=== PATIENT | male | born 1955 | race American Indian/Alaskan Native ===

== ENCOUNTER 2018-09-09 02:42 | Emergency (ER) | payer MEDICARE ==
[2018-09-09 03:06] VITALS: BP 167/75
== END 2018-09-09 03:21 | disposition left against medical advice (07) ==
LOC: ED 02:42
DX: S69.92XA Unspecified injury of left wrist, hand and finger(s), initial encounter (principal); X58.XXXA Exposure to other specified factors, initial encounter; Y93.89 Activity, other specified; Y92.89 Other specified places as the place of occurrence of the external cause; Y99.8 Other external cause status; Z53.21 Procedure and treatment not carried out due to patient leaving prior to being seen by health care provider

== ENCOUNTER 2018-11-27 09:18 | Observation (INO) | payer MEDICARE ==
[2018-11-27] MEDS ORDERED: ASPIRIN PO ONE (09:41)
--- NOTE | 2018-11-27 10:24 | XRay Report ---
CHEST 1 VIEW INDICATION: Chest Pain. COMPARISON: FINDINGS: Support devices: None. Heart: Borderline to mild cardiomegaly is suspected. Normal pulmonary vascularity. Lungs/Pleura: No acute air space or interstitial disease. Additional findings: None. IMPRESSION: Borderline to mild cardiomegaly . Lungs clear. Signer Name: Angelo Bose Jr, MD Signed: 11/27/2018 10:20 AM Workstation Name: [id number]
[2018-11-27 10:35] LABS: Basophils # (Auto) 0.1 K/mm3 (0.0-0.1); Basophils % (Auto) 1.7 % (0.0-1.8); Eosinophils # (Auto) 0.1 K/mm3 (0.0-0.4); Eosinophils % (Auto) 3.3 % (0.0-4.3); Hematocrit 38.5 % (35.5-45.6); Hemoglobin 12.8 gm/dl (11.8-15.2); Lymphocytes # (Auto) 1.6 K/mm3 (1.2-5.4); Mean Corpuscular HGB Conc 33 % (32-34); Mean Corpuscular Volume 77 fl (84-94); Monocytes # (Auto) 0.4 K/mm3 (0.0-0.8); Monocytes % (Auto) 8.6 % (0.0-7.3); Platelet Count 177 K/mm3 (140-440); Red Blood Count 5.01 M/mm3 (3.65-5.03); Red Cell Distribution Width 15.9 % (13.2-15.2)
--- NOTE | 2018-11-27 10:40 | Emergency Department Report ---
ED Chest Pain HPI - General Chief Complaint: Chest Pain Stated Complaint: CHEST/HEAD PAIN Time Seen by Provider: 11/27/18 09:55 Source: patient Mode of arrival: Ambulatory Limitations: No Limitations - History of Present Illness Initial Comments: 63 yo AA M, with pmhx of HTN and DM, presents with mid-sternal CP since last night. It is associated with b/l arm and leg pain that is an aching sensation, as well as a headache. He did not take his home meds today and did not take anything specifically to treat his symptoms. No recent travel or sick contacts at home. No SOB, fever, back pain or diaphoresis. His PCP is Brayan Glez. His Cardilogist is Werner Mendosa but has not seem him in over a year. He has not had a stress test in more than two years. Severity scale (0 -10): 8 - Related Data Home Medications Medication Instructions Recorded Confirmed Last Taken B2/Vits A,C,E/Lut/Zeaxanth/Min 1 tab PO QDAY 11/27/18 11/27/18 Unknown [Icaps Tablet] Lisinopril [Zestril TAB] 40 mg PO QDAY 11/27/18 11/27/18 Unknown Metoprolol [Lopressor TAB] 50 mg PO BID 11/27/18 11/27/18 Unknown NIFEdipine [Nifedipine ER] 30 mg PO QDAY 11/27/18 11/27/18 11/26/18 [place]-3S/Dha/Epa/Fish Oil [[place]-3 1 each PO QDAY 11/27/18 11/27/18 Unknown Fish Oil 1,000 mg Sfgl] cloNIDine [Catapres] 0.1 mg PO QHS 11/27/18 11/27/18 Unknown Allergies Allergy/AdvReac Type Severity Reaction Status Date / Time statins Allergy Unknown Uncoded 11/27/18 09:24 Heart Score - HEART Score History: Moderately suspicious EKG: Non-specific Age: 45-65 Risk factors: 1-2 risk factors Troponin: < normal limit HEART Score: 4 - Critical Actions Critical Actions: 0-3 pts:0.9-1.7%risk of adverse cardiac event.Candidate for discharge ED Review of Systems ROS: Stated complaint: CHEST/HEAD PAIN Other details as noted in HPI Comment: All other systems reviewed and negative Constitutional: denies: chills, fever Eyes: denies: eye pain, vision change ENT: denies: ear pain, throat pain Respiratory: denies: cough, shortness of breath Cardiovascular: chest pain. denies: palpitations Gastrointestinal: denies: abdominal pain, vomiting Genitourinary: denies: dysuria, discharge Musculoskeletal: arthralgia, myalgia. denies: joint swelling Skin: denies: rash, lesions Neurological: headache. denies: numbness, paresthesias ED Past Medical Hx - Past Medical History Hx Hypertension: Yes Hx Diabetes: Yes - Surgical History Past Surgical History?: No - Social History Smoking Status: Never Smoker Substance Use Type: None - Medications Home Medications: Home Medications Medication Instructions Recorded Confirmed Last Taken Type B2/Vits A,C,E/Lut/Zeaxanth/Min 1 tab PO QDAY 11/27/18 11/27/18 Unknown History [Icaps Tablet] Lisinopril [Zestril TAB] 40 mg PO QDAY 11/27/18 11/27/18 Unknown History Metoprolol [Lopressor TAB] 50 mg PO BID 11/27/18 11/27/18 Unknown History NIFEdipine [Nifedipine ER] 30 mg PO QDAY 11/27/18 11/27/18 11/26/18 History [place]-3S/Dha/Epa/Fish Oil [[place]-3 1 each PO QDAY 11/27/18 11/27/18 Unknown History Fish Oil 1,000 mg Sfgl] cloNIDine [Catapres] 0.1 mg PO QHS 11/27/18 11/27/18 Unknown History ED Physical Exam - General Limitations: No Limitations - Other Other exam information: GENERAL: The patient is well-developed well-nourished. HENT: Normocephalic. Atraumatic. Patient has moist mucous membranes. EYES: Extraocular motions are intact. NECK: Supple. Trachea is midline. CHEST/LUNGS: Clear to auscultation. There is no respiratory distress noted. HEART/CARDIOVASCULAR: Regular. There is no tachycardia. There is no murmur. ABDOMEN: Abdomen is soft, nontender. Patient has normal bowel sounds. There is no abdominal distention. SKIN: Skin is warm and dry. NEURO: The patient is awake, alert, and oriented. The patient is cooperative. The patient has no focal neurologic deficits. The patient has normal speech. MUSCULOSKELETAL: There is no tenderness or deformity. There is no limitation range of motion. There is no evidence of acute injury. ED Course Vital Signs 11/27/18 11/27/18 11/27/18 09:55 10:00 10:46 Temperature 98.3 F Pulse Rate 84 64 78 Respiratory 12 17 11 L Rate Blood Pressure 202/97 186/96 156/86 O2 Sat by Pulse 96 94 98 Oximetry 11/27/18 11/27/18 11/27/18 11:00 11:06 12:00 Temperature Pulse Rate 58 L 53 L Respiratory 14 18 20 Rate Blood Pressure 156/86 180/74 O2 Sat by Pulse 99 97 Oximetry 11/27/18 11/27/18 11/27/18 12:30 12:56 13:26 Temperature Pulse Rate 73 68 87 Respiratory 21 27 H Rate Blood Pressure 172/71 218/107 218/107 O2 Sat by Pulse 97 99 Oximetry 11/27/18 11/27/18 11/27/18 13:30 14:00 14:29 Temperature Pulse Rate 85 74 77 Respiratory 26 H 17 Rate Blood Pressure 206/87 196/88 202/83 O2 Sat by Pulse 99 99 Oximetry 11/27/18 11/27/18 11/27/18 14:30 15:15 15:30 Temperature Pulse Rate 70 76 Respiratory 17 26 H Rate Blood Pressure 188/86 198/63 161/58 O2 Sat by Pulse 100 100 98 Oximetry 11/27/18 11/27/18 11/27/18 16:30 17:00 17:30 Temperature Pulse Rate 67 59 L 58 L Respiratory 21 25 H 19 Rate Blood Pressure 163/78 176/62 154/56 O2 Sat by Pulse 97 97 97 Oximetry 11/27/18 17:43 Temperature 98.1 F Pulse Rate Respiratory Rate Blood Pressure O2 Sat by Pulse Oximetry HAYDEN score - Hayden Score Age > 65: (0) No Aspirin use within the Past 7 Days: (0) No 3 or more CAD Risk Factors: (0) No 2 or more Angina events in past 24 hrs: (1) Yes Known CAD with more than 50% Stenosis: (0) No Elevated Cardiac Markers: (0) No ST Deviation Greater than 0.5mm: (1) Yes HAYDEN Score: 2 ED Medical Decision Making - Lab Data Result diagrams: 11/27/18 10:15 11/27/18 10:15 - EKG Data -: EKG Interpreted by Me EKG shows normal: sinus rhythm (PACs), axis (left axis deviation), intervals (prolonged MS interval), QRS complexes (LVH), ST-T waves Rate: normal - EKG Data When compared to previous EKG there are: previous EKG unavailable Interpretation: other (Sinus with PACs, LVH, prolonged MS interval) - Radiology Data Radiology results: report reviewed, image reviewed interpreted by me: Chest x-ray does not show any acute process. There are no pleural effusions, obvious pneumonia and there is no pneumothorax. CTA CHEST WITH CONTRAST INDICATION : Chest pain for 2 months, hypertension, diabetes. TECHNIQUE: Axial imaging performed through the chest, with contrast bolus timing set to maximize opacification of the pulmonary arteries. Sagittal and coronal reformatted images. 3-plane MIP reformatted images were obtained. All CT scans at this location are performed using CT dose reduction for ALARA by means of automated exposure control. Omnipaque 350 100 mL of intravenous contrast administered. COMPARISON: None FINDINGS: Bolus: Contrast bolus timing is adequate. PTE: No filling defect is present to suggest PTE. Mediastinum: Mild cardiomegaly is evident. No pericardial effusion. The aorta is within normal limits. No pathologic mediastinal adenopathy. Lungs: Lungs are clear. Upper abdomen: Limited imaging of the upper abdomen shows nothing acute. Few simple left renal cysts are partially imaged. Bones: No significant abnormality. IMPRESSION: Negative for PTE. Mild cardiomegaly. Clear lungs. CT of the head does not show any acute intracranial process including no ischemi a, shift, mass, bleeding or skull fracture. - Medical Decision Making This patient presents with a headache and some midsternal chest pain. He also presents with severely elevated blood pressure. EKG did not show any signs of ST elevation WI. Chest x-ray did not show any focal consolidation, pneumothorax, pneumonia, pleural effusions, or any other acute process. Patient's labs were mostly unremarkable except for a slightly elevated and equivocal d-dimer. For this reason a CT angiography of the chest was done but it did not result in any pulmonary embolism, dissection or aneurysm. CT of the head without contrast was also done that does not show any bleed, shift, mass, ischemia, or any other acute process. Patient was given some pain medication a nd 2 different doses of antihypertensive medication. It helped with his discomfort but he still has elevated blood pressure. It has been a while since the patient last had a stress test. For all these reasons, the patient will be admitted to hospital for further evaluation and treatment and was accepted for admission by the hospitalist, Dr Christensen. - Differential Diagnosis WI, PE, Costochondritis, tension GARCIA, subarachnoid Critical Care Time: No Critical care attestation.: If time is entered above; I have spent that time in minutes in the direct care of this critically ill patient, excluding procedure time. ED Disposition Clinical Impression: Acute chest pain, Hypertensive urgency Disposition: 09 OP ADMIT IP TO THIS HOSP Is pt being admited?: Yes Condition: Fair Time of Disposition: 14:18
[2018-11-27 10:46] LABS: INR 1.11 (0.87-1.13)
[2018-11-27 10:47] LABS: Partial Thromboplastin Time 28.6 Sec. (24.2-36.6)
[2018-11-27] MEDS ORDERED: APRESOLINE IV ONE ×2 (10:53→13:55)
[2018-11-27] MEDS ORDERED: MORPHINE IV ONE (10:53)
[2018-11-27 10:59] LABS: BUN/Creatinine Ratio 14; Blood Urea Nitrogen 15 mg/dL (9-20); Calcium 9.2 mg/dL (8.4-10.2); Hemolysis Index 15
--- NOTE | 2018-11-27 13:49 | Cat Scan Report ---
CTA CHEST WITH CONTRAST INDICATION : Chest pain for 2 months, hypertension, diabetes. TECHNIQUE: Axial imaging performed through the chest, with contrast bolus timing set to maximize opa cification of the pulmonary arteries. Sagittal and coronal reformatted images. 3-plane MIP reformatte d images were obtained. All CT scans at this location are performed using CT dose reduction for ALAR A by means of automated exposure control. Omnipaque 350 100 mL of intravenous contrast administered. COMPARISON: None FINDINGS: Bolus: Contrast bolus timing is adequate. PTE: No filling defect is present to suggest PTE. Mediastinum: Mild cardiomegaly is evident. No pericardial effusion. The aorta is within normal limit s. No pathologic mediastinal adenopathy. Lungs: Lungs are clear. Upper abdomen: Limited imaging of the upper abdomen shows nothing acute. Few simple left renal cyst s are partially imaged. Bones: No significant abnormality. IMPRESSION: Negative for PTE. Mild cardiomegaly. Clear lungs. Signer Name: Angelo Bose Jr, MD Signed: 11/27/2018 1:45 PM Workstation Name: [id number]
--- NOTE | 2018-11-27 14:00 | Cat Scan Report ---
CT HEAD WITHOUT CONTRAST INDICATION / CLINICAL INFORMATION: Headache. TECHNIQUE: Axial imaging performed from the skull apex through the skull base without the use of cont rast. All CT scans at this location are performed using CT dose reduction for ALARA by means of auto mated exposure control. COMPARISON: None available. FINDINGS: HEMORRHAGE: None. EXTRA-AXIAL SPACES: Normal in size and morphology for the patient's age. VENTRICULAR SYSTEM: Normal in size and morphology for the patient's age. CEREBRAL PARENCHYMA: No significant abnormality. No acute territorial infarct. MIDLINE SHIFT OR HERNIATION: None. CEREBELLUM / BRAINSTEM: No significant abnormality. ORBITS: Normal as visualized. SOFT TISSUES of HEAD: No significant abnormality. CALVARIUM: No significant abnormality. PARANASAL SINUSES / MASTOID AIR CELLS: Normal as visualized. ADDITIONAL FINDINGS: None. IMPRESSION: 1. No acute intracranial abnormality. Signer Name: Angelo Bose Jr, MD Signed: 11/27/2018 1:55 PM Workstation Name: [id number]
[2018-11-27] MEDS ORDERED: DILAUDID IV PRN (21:19)
[2018-11-27] MEDS ORDERED: SODIUM CHLORIDE FLUSH SYRINGE 10 ML IV PRN (21:19)
[2018-11-27] MEDS ORDERED: ZOFRAN IV PRN (21:19)
[2018-11-27] MEDS ORDERED: IBUPROFEN PO PRN (21:19)
[2018-11-27] MEDS ORDERED: TYLENOL PO PRN (21:19)
--- NOTE | 2018-11-27 21:19 | Event Note ---
Date: 11/27/18 See dictated history and physical in the reports Chest pain rule out MT Hypertensive emergency
[2018-11-27] MEDS ORDERED: APRESOLINE IV PRN ×2 (21:23→21:34)
--- NOTE | 2018-11-27 21:59 | History and Physical Report ---
CHIEF COMPLAINT: Chest pain since last night. Headache since yesterday. HISTORY OF PRESENT ILLNESS: A 63-year-old -[place] male with history of hypertension, comes in for left-sided chest pain since yesterday and also headache since yesterday. Headache is bitemporal and dull in character. Pain is about 8 on a scale of 1-10. No nausea or vomiting. No shortness of breath. No fever. No diaphoresis, no palpitations. The patient has not had a stress test in more than 2 years. No shortness of breath on exertion. No precipitating or exacerbating factors. No relieving factors. Chest pain is 7-8 on a scale of 1-10. PAST MEDICAL HISTORY: Significant for hypertension and hyperlipidemia. PAST SURGICAL HISTORY: None. SOCIAL HISTORY: Does not smoke. No alcohol, no recreational drugs. FAMILY HISTORY: Significant for hypertension. CURRENT MEDICATIONS: Lisinopril 40 mg once a day, metoprolol 50 mg twice a day, nifedipine 30 mg once a day, and clonidine 0.1 at bedtime. REVIEW OF SYSTEMS: Significant for left-sided chest pain and headache. No palpitations, no shortness of breath. A 14-point review of systems is done. Otherwise, negative. PHYSICAL EXAMINATION: GENERAL: Middle-aged male, cooperative during examination. VITAL SIGNS: Blood pressure was 202/97 the initial one. The second one was 186/96, temperature is 98.3, pulse is 84, respirations are 12, sats are 96%. HEENT: Unremarkable. Pupils equal and reactive. NECK: Supple, no lymphadenopathy, no thyromegaly. LUNGS: Clear to auscultation and percussion. Good air entry. CARDIOVASCULAR: S1, S2 heard. No gallop, no murmur, no rub. Apical impulse in left fifth intercostal space and midclavicular line. ABDOMEN: Soft and benign. No hepatosplenomegaly. No guarding, no rigidity. Hernial orifices are normal. EXTREMITIES: Good pedal pulses. No pedal edema. CENTRAL NERVOUS SYSTEM: Alert and oriented x 4, nonfocal exam. SKIN: Normal. EKG shows sinus rhythm, atrial premature complexes, left ventricular hypertrophy. Deep R waves in V1, V2, V3 and V4. Tall R waves in V5 and V6. Heart rate of 69 per minute. Chest x-ray shows borderline to mild cardiomegaly. Lungs are clear. CT of the chest negative for pulmonary embolism. Mild cardiomegaly. Head CT with no acute findings. ASSESSMENT AND PLAN: 1. Chest pain, rule out myocardial infarction, chest pain protocol. Serial troponins. Stress test, treadmill in the morning. The patient can walk, has exercise treadmill stress test. 2. Hypertensive emergency. The patient initiated on losartan. To continue lisinopril, metoprolol, nifedipine. Clonidine to be put on hold. Clonidine may be causing rebound hypertension because it is being given only one time. Added losartan and MARBIN inhibitor. No more clonidine in the future. The patient to be counseled about that. 3. Hyperglycemia. The patient to be ruled out for diabetes. Hemoglobin A1c to be checked. The patient to be initiated on Accu-Cheks a.c. and at bedtime and moderate dose sliding scale protocol. 4. Deep venous thrombosis prophylaxis. Continue Lovenox 40 mg subcutaneous daily and GI prophylaxis. JOB# [id number] VSM/NTS
[2018-11-27] MEDS ORDERED: LOVENOX SUB-Q SCH (22:00)
[2018-11-27] MEDS ORDERED: NORVASC PO SCH (22:00)
[2018-11-27 22:17] LABS: Creatine Kinase MB 3.4 ng/mL (0.0-4.0)
[2018-11-27] MEDS: LOPRESSOR PO SCH (22:29)
[2018-11-27] MEDS: PEPCID PO SCH (22:29)
[2018-11-27] MEDS: ZESTRIL PO SCH (22:29)
[2018-11-27] MEDS: PROCARDIA XL PO SCH (22:29)
[2018-11-27] MEDS: HumaLOG SUB-Q SCH (22:31)
[2018-11-27] MEDS: COZAAR PO SCH (22:31)
[2018-11-27] MEDS: SODIUM CHLORIDE FLUSH SYRINGE 10 ML IV SCH (22:32)
[2018-11-28 06:51] LABS: Basophils # (Auto) 0.1 K/mm3 (0.0-0.1); Basophils % (Auto) 1.4 % (0.0-1.8); Eosinophils # (Auto) 0.2 K/mm3 (0.0-0.4); Eosinophils % (Auto) 4.1 % (0.0-4.3); Lymphocytes # (Auto) 1.7 K/mm3 (1.2-5.4); Mean Corpuscular HGB Conc 33 % (32-34); Mean Corpuscular Volume 77 fl (84-94); Monocytes # (Auto) 0.4 K/mm3 (0.0-0.8); Monocytes % (Auto) 9.4 % (0.0-7.3); Platelet Count 170 K/mm3 (140-440); Red Blood Count 5.08 M/mm3 (3.65-5.03)
[2018-11-28 07:00] LABS: Creatine Kinase MB 2.9 ng/mL (0.0-4.0)
[2018-11-28 07:12] LABS: Alanine Aminotransferase 11 units/L (7-56); Albumin 3.8 g/dL (3.9-5); BUN/Creatinine Ratio 14; Blood Urea Nitrogen 14 mg/dL (9-20); Calcium 9.1 mg/dL (8.4-10.2); Hemolysis Index 32
[2018-11-28] MEDS ORDERED: FISH OIL PO SCH (10:00)
[2018-11-28] MEDS: COZAAR PO SCH (11:31)
[2018-11-28] MEDS: PROCARDIA XL PO SCH (11:32)
[2018-11-28] MEDS: ZESTRIL PO SCH (11:32)
[2018-11-28] MEDS: PEPCID PO SCH (11:32)
[2018-11-28] MEDS: LOPRESSOR PO SCH (11:32)
[2018-11-28] MEDS: HumaLOG SUB-Q SCH (11:33)
[2018-11-28 11:34] VITALS: BP 146/66
[2018-11-28] MEDS: SODIUM CHLORIDE FLUSH SYRINGE 10 ML IV SCH (11:46)
--- NOTE | 2018-11-28 14:58 | Discharge Summary ---
Providers - Providers Date of Admission: 11/27/18 14:18 Date of discharge: 11/28/18 Attending physician: GM WELLS Primary care physician: YOLANDE ABDULLAHI Hospitalization Condition: Fair Hospital course: Patient is 63 yo with hypertension, diabetes, presented with mid-sternal chest pain. He was seen and evaluated in the emergency department. Initial troponin was normal. Initial BP was 202/97. He was given Hydralazine iv aspirin and admitted to manage BP and to rule out acute coronary syndrome. Stress test done the following day was normal. By then BP was normal on multiple medications. He was subsequently discharged home. Chest pain is non-cardiac due to GERD. Disposition: DC- TO HOME OR SELFCARE - Discharge Diagnoses (1) Acute chest pain Status: Acute (2) Hypertensive urgency Status: Acute (3) GERD (gastroesophageal reflux disease) Status: Acute Core Measure Documentation - Palliative Care Palliative Care/ Comfort Measures: Not Applicable - Core Measures Any of the following diagnoses?: none Exam - Constitutional Vitals: Temp Pulse Resp BP Pulse Ox 98.0 F 75 18 146/66 98 11/28/18 08:55 11/28/18 11:32 11/28/18 10:00 11/28/18 11:32 11/28/18 08:55 Plan Activity: no restrictions Diet: low fat, low cholesterol, low salt Additional Instructions: 1.Follow up with PCP in 1 week. Follow up with: PRIMARY CAREMD [Referring] - 3-5 Days Prescriptions: cloNIDine [Catapres] 0.1 mg PO BID #60 tablet Famotidine [Pepcid] 20 mg PO BID #30 tablet
--- NOTE | 2018-11-29 00:25 | Treadmill Report ---
TREADMILL STRESS TEST REPORT REASON FOR STUDY: Chest pain. STRESS TEST PROTOCOL: The patient completed 6 minutes and 18 seconds of the Mychal protocol. He attained a peak heart rate of 147 per minute, which is 93% of his age predicted maximum (7.4 mets). No ischemic ECG changes. No chest pain. There were frequent PACs during exercise and in the recovery phase. The test was terminated due to fatigue. IMPRESSION: Negative stress test. No evidence of stress-induced ischemia. JOB# [id number] EVELIN/NTS
== END 2018-11-28 16:00 | disposition home or self-care (01) ==
LOC: ED 09:18 → 4A 14:18
PROVIDERS: ADMIT Internal Medicine; ATTEND Internal Medicine
DX: R07.89 Other chest pain (principal); I16.0 Hypertensive urgency; I16.1 Hypertensive emergency; I10 Essential (primary) hypertension; E11.65 Type 2 diabetes mellitus with hyperglycemia; Z79.899 Other long term (current) drug therapy
CPT/HCPCS: 36415; 70450; 71045; 71275; 80048; 80053; 82550; 82553; 82962; 83036; 84484; 85025; 85379; 85610; 85730; 93005; 93010; 93017; 96374; 96376; 99284; G0378; G0480; J0360; Q9967; 80320; J1650

== ENCOUNTER 2019-10-07 05:24 | Emergency (ER) | payer MEDICARE ==
[2019-10-07 05:35] VITALS: BP 189/93
--- NOTE | 2019-10-07 08:30 | Cat Scan Report ---
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 TECHNIQUE: All CT scans at this location are performed using CT dose reduction for ALARA by means of automated e xposure control. COMPARISON: Head CT dated 02/02/2019 FINDINGS: One scan a left sided prosthesis is seen in the orbit. The appearance of the prosthesis has not teresa ed from the prior examination dated 02/02/2019. No significant soft tissue edema or fluid is seen insi de or outside of the orbit. Contents of the left orbit is unchanged from the prior study. No fracture seen. The paranasal sinuses are clear. 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 No defini te acute abnormality is seen. Signer Name: Ollie Taylor MD FACR Signed: 10/07/2019 8:26 AM Workstation Name: [id number]
--- NOTE | 2019-10-07 08:37 | Emergency Department Report ---
ED Eye Problem HPI - General Chief complaint: Eye Problems Stated complaint: BILATERAL EYE PAIN Time Seen by Provider: 10/07/19 08:19 Source: patient Mode of arrival: Ambulatory Limitations: No Limitations - History of Present Illness Initial comments: 64-year-old -[place] male presents to the emergency room for bilateral eye pain and drainage. Patient states that this is been intermittent for the last 2 weeks. 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 Patient states that it feels like the eyeball is sore to touch. Patient reports the pain is intense by moving his eye and movement. Patient states that he was seen by Dr. Middleton office and was placed on antibiotic eyedrops but does not know the name of them. Patient reports that his pain is a 10 out of 10 with movement and when he stays still and relaxes the pain subsides. Patient denies any recent trauma to his eye. Patient admits that his vision is blurred. And he does have some light sensitivity. MD chief complaint: eye pain, eye redness - Related Data Home Medications Medication Instructions Recorded Confirmed Last Taken B2/Vits A,C,E/Lut/Zeaxanth/Min 1 tab PO QDAY 11/27/18 11/27/18 Unknown [Icaps Tablet] Metoprolol [Lopressor TAB] 50 mg PO BID 11/27/18 11/27/18 Unknown NIFEdipine [Nifedipine ER] 30 mg PO QDAY 11/27/18 11/27/18 11/26/18 [place]-3S/Dha/Epa/Fish Oil [[place]-3 1 each PO QDAY 11/27/18 11/27/18 Unknown Fish Oil 1,000 mg Sfgl] lisinopriL [Zestril TAB] 40 mg PO QDAY 11/27/18 11/27/18 Unknown Previous Rx's Medication Instructions Recorded Last Taken Type Famotidine [Pepcid] 20 mg PO BID #30 tablet 11/28/18 Unknown Rx cloNIDine [Catapres] 0.1 mg PO BID #60 tablet 11/28/18 Unknown Rx Acetaminophen [Non-Aspirin Extra 500 mg PO Q6HR PRN #30 tablet 02/02/19 Unknown Rx Strength] Ibuprofen [Motrin] 600 mg PO Q8H PRN #30 tablet 02/02/19 Unknown Rx oxyCODONE /ACETAMINOPHEN [Percocet 1 tab PO Q6HR PRN #9 tablet 02/02/19 Unknown Rx 5/325] Allergies Allergy/AdvReac Type Severity Reaction Status Date / Time statins Allergy Unknown Uncoded 11/27/18 09:24 ED Review of Systems ROS: Stated complaint: BILATERAL EYE PAIN Other details as noted in HPI ED Past Medical Hx - Past Medical History Previous Medical History?: Yes Hx Hypertension: Yes Hx Congestive Heart Failure: No Hx Diabetes: Yes Hx Asthma: No Hx COPD: No - Surgical History Past Surgical History?: No - Social History Smoking Status: Never Smoker Substance Use Type: None - Medications Home Medications: Home Medications Medication Instructions Recorded Confirmed Last Taken Type B2/Vits A,C,E/Lut/Zeaxanth/Min 1 tab PO QDAY 11/27/18 11/27/18 Unknown History [Icaps Tablet] Metoprolol [Lopressor TAB] 50 mg PO BID 11/27/18 11/27/18 Unknown History NIFEdipine [Nifedipine ER] 30 mg PO QDAY 11/27/18 11/27/18 11/26/18 History [place]-3S/Dha/Epa/Fish Oil [[place]-3 1 each PO QDAY 11/27/18 11/27/18 Unknown History Fish Oil 1,000 mg Sfgl] lisinopriL [Zestril TAB] 40 mg PO QDAY 11/27/18 11/27/18 Unknown History Famotidine [Pepcid] 20 mg PO BID #30 tablet 11/28/18 Unknown Rx cloNIDine [Catapres] 0.1 mg PO BID #60 tablet 11/28/18 Unknown Rx Acetaminophen [Non-Aspirin Extra 500 mg PO Q6HR PRN #30 tablet 02/02/19 Unknown Rx Strength] Ibuprofen [Motrin] 600 mg PO Q8H PRN #30 tablet 02/02/19 Unknown Rx oxyCODONE /ACETAMINOPHEN [Percocet 1 tab PO Q6HR PRN #9 tablet 02/02/19 Unknown Rx 5/325] ED Physical Exam - General Limitations: No Limitations ED Course Vital Signs 10/07/19 05:29 Temperature 98.5 F Pulse Rate 63 Respiratory 18 Rate Blood Pressure 189/93 O2 Sat by Pulse 99 Oximetry ED Medical Decision Making - Radiology Data Radiology results: report reviewed Referring Physician:NICK NEWMANPatient Name:THERESE JAMES BEEPatient ID:[id number] of :[id number]:MaleAccession:[id number] Date:5723-33-17Pmruum Status:Finalized Findings [facility] [address] [id number] Cat Scan Report Signed Patient: THERESE REGAN JR MR#: [id number] : 1955 Acct:[id number] Age/Sex: 64 / M ADM Date: 10/07/19 Loc: ED Attending Dr: Ordering Physician: JOSE DUMONT Date of Service: 10/07/19 Procedure(s): CT orbit/ear/fossa wo con Accession Number(s): [id number] cc: JOSE DUMONT CT orbit/ear/fossa wo con INDICATION / CLINICAL INFORMATION: severe eye pressure to prosthetic eye. TECHNIQUE: All CT scans at this location are performed using CT dose reduction for ALARA by means of automated exposure control. COMPARISON: Head CT dated 02/02/2019 FINDINGS: One scan a left sided prosthesis is seen in the orbit. The appearance of the prosthesis has not changed from the prior examination dated 02/02/2019. No significant soft tissue edema or fluid is seen inside or outside of the orbit. Contents of the left orbit is unchanged from the prior study. No fracture seen. The paranasal sinuses are clear. 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 No definite acute abnormality is seen. Signer Name: Ollie Taylor MD FACR Signed: 10/07/2019 8:26 AM Workstation Name: [id number] Transcribed By: MS Dictated By: Ollie Taylor MD Electronically Authenticated By: Ollie Taylor MD Signed Date/Time: 10/07/19825 DD/ 2 TD/TT: - Medical Decision Making 64-year-old -[place] male presents to the emergency room for bilateral eye pain and drainage. Patient states that this is been intermittent for the last 2 weeks. 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 Patient states that it feels like the eyeball is sore to touch. Patient reports the pain is intense by moving his eye and movement. Patient states that he was seen by Dr. Middleton office and was placed on antibiotic eyedrops but does not know the name of them. Patient reports that his pain is a 10 out of 10 with movement and when he stays still and relaxes the pain subsides. Patient denies any recent trauma to his eye. Patient admits that his vision is blurred. And he does have some light sensitivity. CT scan of orbital showed no changes or acute abnormalities. Fluorescein exam shows no concern for any uptake. Attending DrRenae spoke to Dr. Middleton water commissioner he recommends patient to continue with the steroid drops and to follow-up in the clinic tomorrow with Dr. Acevedo. Patient can take Tylenol or ibuprofen as needed for pain management. In speaking with patient to discharge he reports that the tetracaine had helped his pain. Patient now tells me that he never got the prescription filled from the water commissioner that he was taking another medication that was old and but not able to tell me the name. Critical care attestation.: If time is entered above; I have spent that time in minutes in the direct care of this critically ill patient, excluding procedure time. ED Disposition Clinical Impression: Pain in periorbital region of both eyes Disposition: DC-01 TO HOME OR SELFCARE Is pt being admited?: No Does the pt Need Aspirin: No Condition: Stable Additional Instructions: CT of your eyes were negative for any concerns or acute abnormalities. Consult with Dr. Middleton from [facility] and he recommends to continue with the steroid drops and to follow-up in his clinic tomorrow with Dr. Acevedo. Dr. Middleton will be in [place] if you are able to get to that clinic. Tylenol or ibuprofen as needed for pain management. Referrals: PRIMARY MD RE [Primary Care Provider] - 3-5 Days RAY AUSTIN MD [Staff Physician] - 3-5 Days
[2019-10-07] MEDS ORDERED: TETRACAINE 0.5% OPHTH SOLN 4ML OU ONE (09:03)
[2019-10-07] MEDS ORDERED: BALANCED SALT IRRIG (BSS) OPHTH SOLN 15 ML OU ONE (09:04)
[2019-10-07] MEDS ORDERED: FLUORESCEIN 1 MG STRIP OP ONE (09:04)
== END 2019-10-07 09:57 | disposition home or self-care (01) ==
LOC: ED 05:24
DX: H57.13 Ocular pain, bilateral (principal); I10 Essential (primary) hypertension; E11.9 Type 2 diabetes mellitus without complications; Z79.899 Other long term (current) drug therapy; Z88.8 Allergy status to other drugs, medicaments and biological substances
CPT/HCPCS: 70480